=== PATIENT | male | born 1985 | race Caucasian/White ===

== ENCOUNTER 2018-11-26 15:35 | Emergency (ER) | payer SELFPAY ==
[2018-11-26] MEDS: BACITRACIN 0.5%/ZINC 28.35 GM OINT TOP (17:11)
== END 2018-11-26 17:43 | disposition home or self-care (01) ==
LOC: FTE 17:43
DX: S51.811A Laceration without foreign body of right forearm, initial encounter (principal); F17.210 Nicotine dependence, cigarettes, uncomplicated; W26.8XXA Contact with other sharp object(s), not elsewhere classified, initial encounter; Y92.9 Unspecified place or not applicable
CPT/HCPCS: 12001; 99282-25